=== PATIENT | female | born 1965 | race Caucasian/White ===

== ENCOUNTER 2016-06-15 18:45 | Observation (INO) | payer BC ==
--- NOTE | ~2016-06-15 | EKG ---
PATIENT: JIMMY HERNANDEZ UNIT #: [id number] Ventricular Rate: 54 BPM Atrial Rate: 54 BPM P-R Interval: 160 ms QRS Duration: 88 ms Q-T Interval: 416 ms QTC Calculation(Bezet): 394 ms P [place]: 39 degrees Calculated R [place]: 29 degrees Calculated T [place]: 50 degrees Diagnosis Line: Sinus bradycardia Diagnosis Line: Otherwise normal ECG Diagnosis Line: No previous ECGs available Diagnosis Line: Confirmed by MERLE STOLL MD ([id number]) on 06/16/2016 Diagnosis Line: 6:22:34 PM INTERPRETING MD: DODIE HUMPHREYS
--- NOTE | ~2016-06-15 | CR63 ---
[facility] A Service of [facility] RADIOLOGY TEXT RESULTS PATIENT: JIMMY HERNANDEZ LOCATION: [place] [address] : [birth year] UNIT #: [id number] AGE: [address]: Ander Quinonez MD SEX: F ORDER DR: [id number] [facility] [address] [place], [place] [address] [id number] I MR#: [id number] #: [id number] NAME: JIMMY HERNANDEZ. : 1965 SEX: F STUDY DATE/TIME: 06/16/2016 18:21 UNIT: [facility] ROOM: [facility] STUDY DESCRIPTION: CR Chest 2 View Attending Physician: Ander Quinonez M.D. Ordering Physician: Ander Quinonez M.D. Primary Care Physician: Jose Padgett Jr., M.D. MEDICAL IMAGING REPORT This report is preliminary unless electronic signature is present EXAM PA and lateral chest, 2 views, 06/16/2016. COMPARISON 06/15/2016 HISTORY Cough and chest pain since yesterday. FINDINGS PA and lateral examination of the chest upright shows a good expansion of the parenchyma with a normal distribution of the pulmonary vascularity. There is no indication of congestion, effusion, infiltrate, tumor, or nodular density. The pleural reflections and diaphragmatic contours are normal. The cardiac silhouette and mediastinal anatomy is within normal limits. IMPRESSION Normal chest. Dictated by... Armond Pandey M.D. THIS IS AN ELECTRONICALLY VERIFIED REPORT Armond Pandey M.D. at 06/20/2016 4:33 PM TEV/psc TD: 06/16/2016 23:04 JOB #: [id number] MEDICAL IMAGING REPORT [facility] A Service [facility] RADIOLOGY TEXT RESULTS PATIENT: JIMMY HERNANDEZ LOCATION: [place] [address] : [birth year] UNIT #: [id number] AGE: [address]: Ander Quinonez MD SEX: F ORDER DR: COPY
--- NOTE | ~2016-06-15 | HP ---
Unit #: [id number] #: [id number] Patient: JIMMY HERNANDEZ [id number] [address] [place], [place] [address] [id number] I MR#: [id number] NAME: JIMMY HERNANDEZ. ROOM: 547 Age: 51 Sex: F Admission Date: 06/15/2016 : 1965 Attending Physician: Ander Quinonez M.D. Primary Care Physician: Jose Padgett Jr., M.D. HISTORY AND PHYSICAL HISTORY OF PRESENT ILLNESS This is a pleasant 51-year-old female with a past medical history of hypertension and tobacco abuse as well as family history of coronary artery disease, premature in her father. The patient reports she was walking through [employer] yesterday, at approximately 2:30 in the afternoon, when she developed sudden substernal chest pain and pressure with radiation into her left neck, jaw and down her left arm. She states this episode lasted about 10 minutes and it was relieved by rest. She denies any associated diaphoresis. She does report she did have nausea and shortness of breath with this episode. She states this is the first time this has occurred. The patient does have risk factors for coronary artery disease which include hypertension, premature coronary artery disease in her father at age 38 and fasting lipid panel performed here did show hyperlipidemia, as well as tobacco abuse. EKG performed in the emergency room showed sinus bradycardia, rate of 54 beats per minute. QTC interval was 394 msec. No acute ischemic change. Troponin has been negative times one. Chest x-ray shows no active disease. At present she is resting in bed in the emergency room. She currently is chest pain free. She appears to be in no acute distress. PE on chronic anticoagulation with Coumadin. PAST MEDICAL HISTORY 1. Hypertension. 2. Tobacco abuse. 3. Stomach ulcers in the past. 4. PE. 5. History of factor V clotting deficiency. 6. Depression/anxiety. PAST SURGICAL HISTORY No known surgical history. SOCIAL HISTORY The patient lives in a private resident with her . 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 She is an approximately one hrxk-boh-pgs smoker. She denies any illicit drugs or alcohol use. ALLERGIES No known drug allergies. HOME MEDICATIONS 1. Coumadin 10 mg p.o. daily. 2. Prinivil 20 mg p.o. daily. Unit #: [id number] #: [id number] Patient: JIMMY HERNANDEZ 3. Trazodone 50 mg p.o. at nighttime. 4. Celexa 20 mg p.o. at nighttime. REVIEW OF SYSTEMS Negative except for that stated in history of present illness. PHYSICAL EXAMINATION GENERAL: This is a pleasant 51-year-old female in no acute distress. VITALS: Temperature 98.4, respiratory rate 18-20, pulse 60-70s, blood pressure 125/73. HEENT: Pupils equal and round. Mucous membranes are moist. LUNGS: Clear to auscultation. No adventitial breath sounds. No rales. No rhonchi. No wheezes. HEART: S1 and S2. Regular rate and rhythm. Bradycardic. ABDOMEN: Soft, nontender and nondistended. Bowel sounds are positive. EXTREMITIES: Pulses are palpable. No clubbing, cyanosis or edema. DIAGNOSTIC STUDIES IMAGING: Chest x-ray shows no acute findings. LABORATORY: Sodium 136, potassium 3.9, chloride 107, CO2 26, BUN 19, creatinine 0.9, glucose 94, hemoglobin 15.7, hematocrit 46.6, white blood cell count 10.9, platelets 296, total cholesterol 214, triglycerides 176, LDL 145, HDL 34. PT/INR 26.2, INR 2.4. CARDIOVASCULAR: EKG shows sinus bradycardia at a rate of 54 beats per minute. QTC interval is 394 msec. No acute ischemic change. ASSESSMENT 1. Chest pain. Rule out acute coronary syndrome. Typical for angina. 2. Hyperlipidemia. 3. Hypertension. 4. Continued tobacco abuse. 5. History of pulmonary embolus on chronic anticoagulation with Coumadin. 6. History of factor V. PLAN The patient has been admitted secondary to complaints of chest pain. She does have risk factors for coronary artery disease and her symptoms are typical for angina. Her risk factors include hypertension, hyperlipidemia, tobacco abuse and a premature coronary artery disease in her father. Thus far she has had one troponin which has been negative. Will check a second troponin. If this is negative, will schedule for nuclear exercise Cardiolite today. She will be started on atorvastatin 40 mg p.o. at nighttime secondary to her elevated lipid profile. Will continue her daily Coumadin dosing and check daily PT/INR. Will also get CBC, BMP, magnesium and TSH level in the a.m. For now she will be kept n.p.o. and again if troponin is negative exercise Cardiolite will be performed today. She currently also has a two-dimensional echocardiogram that is pending. The patient was also counseled regarding smoking cessation, diet and lifestyle modification. If her exercise Cardiolite is normal and her echo is okay, most likely she could be discharged later today. Dictated by Claudia Padilla A.P.R.N. for Unit #: [id number] #: [id number] Patient: JIMMY HERNANDEZ M.D. LMW/gz TD: 06/16/2016 16:14 JOB #: [id number] CC: Jose Padgett Jr., M.D. HISTORY AND PHYSICAL X Claudia Padilla APRN X HISTORY AND PHYSICAL
--- NOTE | ~2016-06-15 | TH ---
Unit #: [id number] #: [id number] Patient: JIMMY HERNANDEZ [id number] [address] [address] [id number] I MR#: [id number] NAME: JIMMY HERNANDEZ. : 1965 SEX: F STUDY DATE/TIME: 06/16/2016 UNIT: [id number] ROOM: 547 STUDY DESCRIPTION: Stress nuclear study Attending Physician: Ander Quinonez M.D. Primary Care Physician: Jose Padgett Jr., M.D. CARDIOLOGY REPORT INDICATION Chest pain, strong family history of coronary disease for the diagnosis of obstructive coronary disease in a patient with no known coronary disease. SUMMARY The patient attempted exercised under Jose protocol but was given Lexiscan. Heart rate increased from 53 to 108, and blood pressure increased from 124/80 to 162/82. The rest and stress ECG showed no diagnostic ST shifts, no significant dysrhythmias and no heart block. Technetium 99 Cardiolite 11.15 and 32.7 mCi was injected at rest and stress respectively. Appropriate views were obtained. Perfusion images demonstrate normal perfusion throughout the myocardium of both rest and stress, with substantial intestinal artifact at rest, not so much with stress. End-diastolic volume is 79 mL, ejection fraction is 67% on gated perfusion wall motion analysis. Summed stress scores is 2, summed difference scores is 2. There is substantial patient motion at rest, but not with stress and there was breast attenuation artifact. IMPRESSION 1. Myocardial perfusion scan demonstrates no ischemia or infarction. 2. Normal wall motion with excellent ejection fraction. 3. Patient may be discharged. Dictated by... Hari Way/willie TD: 06/17/2016 06:14 JOB #: [id number] CARDIOLOGY REPORT X Ander Quinonez MD CARDIOLOGY REPORT
--- NOTE | ~2016-06-15 | CR72 ---
[facility] A Service of [facility] RADIOLOGY TEXT RESULTS PATIENT: JIMMY HERNANDEZ LOCATION: [place] [address] : [birth year] UNIT #: [id number] AGE: [address]: Ander Quinonez MD SEX: F ORDER DR: [id number] [facility] [address]. [place], [place] [address] [id number] I MR#: [id number] #: [id number] NAME: JIMMY HERNANDEZ. : 1965 SEX: F STUDY DATE/TIME: 06/15/2016 18:19 UNIT: [facility] ROOM: [id number] STUDY DESCRIPTION: CR Chest Single View Portable Attending Physician: Ander Quinonez M.D. Ordering Physician: Altagracia Ardon M.D. Primary Care Physician: Jose Padgett Jr., M.D. MEDICAL IMAGING REPORT This report is preliminary unless electronic signature is present EXAM AP portable chest date 06/15/2016 at 02:19 HISTORY Chest pain, shortness of breath, cough today. COMPARISON STUDIES None. FINDINGS No acute airspace disease is appreciated. Right upper lobe appears mildly hyperinflated. No pleural effusion or pneumothorax is seen. IMPRESSION No acute chest findings. Dictated by... Marjan Stanford M.D. THIS IS AN ELECTRONICALLY VERIFIED REPORT Marjan Stanford M.D. at 06/16/2016 2:42 PM LLH/philip TD: 06/15/2016 23:14 JOB #: [id number] MEDICAL IMAGING REPORT COPY
[2016-06-15 18:33] LABS: BASOPHIL# 0.1 X10e3 (0-0.3); BASOPHIL% 1.2 % (0-2.5); EOSINOPHIL# 0.1 X10e3 (0-0.7); EOSINOPHIL% 0.7 % (0.0-7.0); HEMATOCRIT 46.6 % (35.0-45.0); HEMOGLOBIN 15.7 gm/dL (12.0-16.0); LYMPHOCYTE# 3.7 X10e3 (1.0-3.5); LYMPHOCYTE% 33.8 % (17.0-45.0); MEAN CELL VOLUME 87.7 FL (83-96); MEAN CORPUSCULAR HEMOGLOBIN 29.5 PG (28-34); MEAN CORPUSCULAR HGB CONC 33.6 g/dL (30-36); MEAN PLATELET VOLUME 8.3 FL (6.5-11.5); MONOCYTE# 0.7 X10e3 (0-1.0); MONOCYTE% 6.4 % (3.0-12.0); NEUTROPHIL# 6.3 X10e3 (1.5-7.1); NEUTROPHIL% 57.9 % (40-75); PLATELET COUNT 296 X10e3 (140-420); RED BLOOD COUNT 5.31 X10e (3.90-5.30); RED CELL DISTRIBUTION WIDTH 14.3 % (11.0-15.5); WHITE BLOOD COUNT 10.9 X10e3 (4.0-10.5)
[2016-06-15 18:34] LABS: DIFF IND NO
[2016-06-15 18:38] LABS: POC - CKMB 1.7 ng/mL (0.0-7.9); POC - TROPONIN <0.05 ng/mL (<=0.05)
[~2016-06-15 18:45] MED LIST: CELEXA20 M1 PO; COUMADIN10 MG PO
[2016-06-15 18:48] LABS: INR 2.3; PARTIAL THROMBOPLASTIN TIME 32.7 SECONDS (23.5-31.3); PROTHROMBIN TIME (PATIENT) 24.4 SECONDS (9.6-11.5)
[2016-06-15 18:56] LABS: ALBUMIN SERUM 4.6 g/dL (3.5-5.0); ALKALINE PHOSPHATASE 56 U/L (32-92); ALT (SGPT) 24 U/L (10-40); AST (SGOT) 23 U/L (10-42); BILIRUBIN,TOTAL 0.4 mg/dL (0.2-2.0); BLOOD UREA NITROGEN 19 mg/dL (9-23); BUN/CREATININE RATIO 21.11; CALCIUM SERUM 9.2 mg/dL (8.4-10.2); CARBON DIOXIDE 26 mmol/L (22-31); CHLORIDE 107 mmol/L (100-111); CREATININE SERUM 0.9 mg/dL (0.6-1.4); GLOM FILT RATE Estimated ABOVE60 mL/min (>60); GLUCOSE FASTING 94 mg/dL (70-110); POTASSIUM 3.9 mmol/L (3.5-5.1); PROTEIN TOTAL SERUM 7.9 g/dL (6.0-8.3); SODIUM 136 mmol/L (135-145)
[2016-06-15 18:58] LABS: BILIRUBIN, DIRECT <0.1 mg/dL (0.0-0.2); BILIRUBIN,INDIRECT 0.3 mg/dL (0.0-0.9)
[2016-06-15] MEDS ORDERED: COUMADIN10 MG PO (18:59)
[2016-06-15] MEDS ORDERED: PRINIVIL20 M1 PO (18:59)
[2016-06-15] MEDS ORDERED: DESYREL50 MG PO (19:03)
[2016-06-15] MEDS ORDERED: CELEXA20 M1 PO (19:04)
[2016-06-15 19:59] LABS: POC - CKMB 1.6 ng/mL (0.0-7.9); POC - TROPONIN <0.05 ng/mL (<=0.05)
[2016-06-16 05:53] LABS: INR 2.4; PROTHROMBIN TIME (PATIENT) 26.2 SECONDS (9.6-11.5)
[2016-06-16 06:47] LABS: CHOLESTEROL 214 mg/dL (0-200); HDL CHOLESTEROL 34 mg/dL (35-95); LDL/HDL RATIO 4 RATIO (0-4); TRIGLYCERIDES 176 mg/dL (10-160)
[2016-06-16 06:48] LABS: LDL CHOLESTEROL 145 mg/dL (-130)
[2016-06-16 10:40] LABS: POC - CKMB <1.0 ng/mL (0.0-7.9); POC - TROPONIN <0.05 ng/mL (<=0.05)
[2016-06-16] MEDS ORDERED: METOPROLOL TART25 MG PO (20:39)
[2016-06-16] MEDS ORDERED: LIPITOR40 MG PO (20:42)
== END 2016-06-16 21:40 | disposition home or self-care (01) | DRG 313 ==
LOC: CED 18:45 → CEDOF 19:30 → C5B 06-16 14:28
PROVIDERS: Emergency Medicine
DX: R07.89 Other chest pain (principal); E78.5 Hyperlipidemia, unspecified; I10 Essential (primary) hypertension; F17.200 Nicotine dependence, unspecified, uncomplicated; Z86.711 Personal history of pulmonary embolism; Z79.01 Long term (current) use of anticoagulants; Z82.49 Family history of ischemic heart disease and other diseases of the circulatory system; Z86.2 Personal history of diseases of the blood and blood-forming organs and certain disorders involving the immune mechanism
CPT/HCPCS: 36415; 71010; 71020; 78452; 80048; 80061; 80076; 82553; 84484; 85025; 85610; 85730; 93005; 93017; 93306; 99285; A9500; G0378; J2785